=== PATIENT | female | born 1980 | race African-American/Black ===

== ENCOUNTER 2018-08-13 23:33 | Inpatient (IN) ==
[2018-08-14 00:47] LABS: BASO# 0.02 X1000 (0.0-0.2); BASO% 0.2 % (0.0-0.8); EOS# 0.16 X1000 (0.0-0.7); EOS% 1.5 % (0.0-10.0); HEMATOCRIT 29.3 % (37.0-47.0); HEMOGLOBIN 9.3 g/dL (12.0-16.0); IMM GRAN# 0.02 X1000 (0.0-0.04); IMM GRAN% 0.2 % (0.0-0.5); LYMPH# 4.73 X1000 (1.2-3.4); LYMPH% 42.9 % (20.5-51.1); MCH 25.3 PG (27-31); MCHC 31.7 g/dL (33-37); MCV 79.8 FL (81-99); MONO# 1.43 X1000 (0.11-0.59); MPV 9.7 FL (7.4-10.4); NEUT# 4.67 X1000 (1.4-6.5); NEUT% 42.2 % (42.2-75.2); PLT 298 X1000 (130-400); RBC 3.67 XMIL (4.2-5.4); RDW 14.3 % (11.5-14.5); WBC 11.03 X1000 (4.8-10.8)
[2018-08-14 00:58] LABS: AGAP 12; ALBUMIN 3.7 g/dL (3.5-5.0); ALKALINE PHOSPHATASE 382 U/L (32-104); BUN 7 mg/dL (8-22); CHLORIDE 103 mmol/L (98-107); COSMO 274; CREATININE 0.4 mg/dL (0.5-0.9); ESTIMATED GFR > 60; GLUCOSE 102 mg/dL (70-104); GOT 28 U/L (10-30); GPT 16 U/L (10-36); MAGNESIUM 1.4 mg/dL (1.5-2.7); SODIUM 138 mmol/L (136-145); TCO2 22 mmol/L (25-35); TOTAL PROTEIN 7.6 g/dL (6.3-8.3)
--- NOTE | 2018-08-14 01:36 | EKG Report ---
Test Performed on : 08/14/2018 00:39:29 AM Test Reason : palp Blood Pressure : / mmHG Vent. Rate : 095 BPM Atrial Rate : 095 BPM P-R Int : 138 ms QRS Dur : 084 ms QT Int : 386 ms P-R-T Axes : 069 055 049 degrees QTc Int : 485 ms Normal sinus rhythm. Possible Left atrial enlargement Prolonged QT Abnormal ECG No previous ECGs available Unconfirmed Result
[2018-08-14] MEDS ORDERED: SOLU-MEDROL IV ONE (04:28)
[2018-08-14] MEDS ORDERED: TAPAZOLE PO ONE (04:28)
--- NOTE | 2018-08-14 04:51 | PROVIDER DOCUMENTATION ---
This chart was entered by Tatum Camp Scribe, acting as scribe for Long Shea MD. HPI-General Adult - General Chief Complaint: General Adult Stated Complaint: NECK SWOLLEN Time Seen by Provider: 08/14/18 00:02 Source: patient Allergies/Adverse Reactions: Patient Allergies Allergy/AdvReac Type Severity Reaction Status Date / Time No Known Allergies Allergy Verified 08/13/18 23:58 - History of Present Illness -Gen Adult Nature of Presenting Problems: pt is a 38 yr old female presenting with complaint of neck pain/swelling, pt reports swelling to anterior neck x 1yr worsening and now involving posterior neck, pt also reports intermittent racing heart, chronic shortness of breath and cough, recent vision changes, feeling hot/flushed and recent 20+lb untententional weight loss. Location of Pain/Injury: reports: neck Pain Radiation: reports: no radiation Quality of Pain: reports: aching, tightness Severity: reports: moderate Onset/Duration: reports: gradual Timing: reports: changing over time, getting worse Context/Activities at Onset: reports: light activity Modifying Factors: improves with: nothing Associated Symptoms: reports: back/neck pain, cough (chronic), fatigue, malaise, shortness of breath (chronic). denies: fever/chills, headaches, nausea, trouble walking Similar Symptoms Previously?: No Recently seen or treated by another doctor?: No Review of Systems - Adult - REVIEW OF SYSTEMS - ADULT Constitutional: reports: fatique, night sweats, weight loss (20+lbs). denies: fever Eyes: reports: blurred vision Ears, Nose, Mouth & Throat: denies: ear pain, sinus problem, throat pain Cardiovascular: reports: irregular heart rate, palpitations. denies: chest pain, syncope Respiratory: reports: chronic cough, dyspnea on exertion, shortness of breath (chronic) Gastrointestinal: reports: no symptoms reported Genitourinary: reports: no symptoms reported Musculoskeletal: reports: muscle weakness, neck pain. denies: muscle aches Integumentary: reports: no symptoms reported Neurological: denies: dizziness/vertigo, headache/migraines, loss of balance, syncope Psychiatric: reports: no symptoms reported Endocrine: reports: excessive sweating Hematologic/Lymphatic: reports: swollen lymph nodes Allergic/Immunologic: reports: no symptoms reported All Other Systems: Reviewed and Negative Past History - Adult - PAST MEDICAL HISTORY-ADULT Review of Records: reports: Nursing Assessment Review, Medications Reviewed, Social history reviewed & non-contributory. Major Childhood Illnesses: reports: denies history Cardiovascular: reports: denies history Respiratory: reports: denies history Gastrointestinal: reports: denies history Obstetrical/Gynecological: reports: denies history Genitourinary: reports: denies history Musculoskeletal: reports: denies history Neurological: reports: denies history Endocrine/Immune: reports: denies history Other Conditions: reports: denies history - IMMUNIZATION STATUS Childhood Immunizations: See Nurse Assessment Flu Vaccine: See Nurse Assessment - FAMILY HISTORY Family History: reviewed, not pertinent - SOCIAL HISTORY Smoking: cigarettes Provider spent 3-5 mins advising pt. on dangers of tobacco.: Discussed manners to quit use, and f/u contacts for add'l counseling. Substance Use: alcohol, marijuana Alcohol Use Frequency: occasionally Living Situation: family Physical Exam-General - PHYSICAL EXAM-ADULT Initial Vital Signs Reviewed: Yes - CONSTITUTIONAL General Appearance: alert, no apparent distress, anxious - EYES Eyes: PERRL/EOMI, other (bilateral eye protusion) - HEAD, EARS, NOSE, MOUTH & THROAT HENMT: normocephalic/atraumatic, moist mucous membranes, TMs normal, pharynx normal - NECK Neck: full range of motion, supple, other (inflamation anterior neck) - RESPIRATORY Respiratory: chest non-tender, lungs clear, normal breath sounds, no pleuratic chest pain, no respiratory distress, no accessory muscle use - CARDIOVASCULAR Cardiovascular: normal peripheral pulses, no edema, no gallop, no JVD, no murmur , tachycardia - GASTROINTESTINAL (ABDOMEN) Abdominal Exam: normal bowel sounds, non tender, soft - LYMPHATIC Lymphatic: other (posterior cervical adnopathy) - MUSCULOSKELETAL Back Exam: normal inspection, no CVA tenderness, no vertebral tenderness Extremity: normal range of motion, non-tender, normal inspection Peripheral Pulses: radial (R): 2+, radial (L): 2+ DTR: bicep (R): 2+, bicep (L): 2+, tricep (R): 2+, tricep (L): 2+, knee (R): 2+, knee (L): 2+, ankle (R): 2+, ankle (L): 2+ - SKIN Integumentary: normal color, normal turgor, warm/dry - NEUROLOGIC Neurologic: other (CN II-XII intact) - PSYCHIATRIC Psych/Mental Status: anxious Progress - PLAN OF CARE/RESULTS Progress/Plan/Lab Results: Vital Signs - 8 hr 08/13/18 23:52 Temperature 98.3 F Pulse Rate 101 H Respiratory Rate 16 Blood Pressure 163/83 O2 Sat by Pulse Oximetry 100 Orders Category Date Time Status Cardiac Monitoring DIRECTED Care 08/14/18 00:27 Active ED: Urine Bedside ORDERED Care 08/14/18 00:36 Active Nursing- Obtain EKG ONCE Care 08/14/18 00:27 Active CHEST-2 VIEWS [RAD] Stat Exams 08/14/18 00:27 Ordered CBC WITH DIFF [HEME] Stat Lab 08/14/18 00:42 Ordered COMPREHENSIVE METABOLIC PANEL [CHEM] Stat Lab 08/14/18 00:42 Ordered FREE T3 [HH] Stat Lab 08/14/18 00:30 Received MAGNESIUM [CHEM] Stat Lab 08/14/18 00:42 Ordered T4 Stat Lab 08/14/18 00:30 Received TSH Stat Lab 08/14/18 00:42 Ordered EKG [EKG] Stat Ther 08/14/18 00:27 Ordered Result Diagrams: 08/14/18 00:20 08/14/18 00:20 - XRAY 1 XRAY Study: Chest Impression: Normal - CONSULTS/PCP/HOSPITALIST Notification #1 *Consult/PCP/Hospitalist*: Bruno Del Rosario Discussed: 23:50 Reason/Comments: no answer #2 Consult: Bruno Time Discussed: 02:47 Reason/Comments: no answer, repaged @ [phone] #3 Consult: Bruno Time Discussed: 04:25 Consult Disposition: Admit Departure - Departure Date of Disposition Decision: 08/13/18 Time of Disposition Decision: 23:50 DIAGNOSIS: Hyperthyroidism Disposition: ADMITTED INPATIENT 09 Certified Medical Emergency: Emergent Condition: Good Referrals and Follow-Ups: None,PCP [Primary Care Provider] - - Critical Care Note This patient required my direct & personal management of CC.: No Attestation - Physician/ JAMEL Attestation Patient care was provided by Advanced Practice Provider:: No The physician spent face to face time with patient:: Yes Advanced Practice Provider documentation review:: Supervising physician onsite and consulted in the evaluation and care of this patient. The physician did have a face to face encounter with the patient. This chart was documented by the indicated scribe, (Tatum Camp Scribe) and accurately reflects the services I performed and decisions made by me, Long Shea MD, as attested by the provider's signature.
[2018-08-14] MEDS ORDERED: TAPAZOLE PO SCH (05:00)
--- NOTE | 2018-08-14 07:17 | Diag Imaging Result Doc PS360 ---
EXAM: CHEST-2 VIEWS - 08/14/2018 HISTORY: palpit TECHNIQUE: Chest two views COMPARISON: None. FINDINGS: Heart size appears mildly enlarged. There are calcified granulomas and small calcified lymph nodes from old granulomatous disease on the left. The lungs otherwise appear essentially clear. There is mild thickening of fissures. There is no substantial pleural effusion or pneumothorax identified. IMPRESSION: Mild cardiomegaly. Mild thickening of fissures. No other evidence of acute disease. Electronically signed by Michael Galvez 08/14/2018 7:14 AM
[2018-08-14] MEDS: NS 1,000 ML IV SCH ×2 (08:29→16:48)
[2018-08-14] MEDS: PROTONIX IV SCH (08:29)
[2018-08-14] MEDS: TORADOL IV SCH ×2 (08:29→13:36)
--- NOTE | 2018-08-14 09:15 | Diag Imaging Result Doc PS360 ---
EXAM: US SOFT TISSUE HEAD/NECK - 08/14/2018 HISTORY: new hyperthyroid TECHNIQUE: Ultrasound thyroid COMPARISON: None. FINDINGS: The right lobe measures 7.1 x 3.5 x 4 cm in size. The left lobe measures 7.1 x 2.7 x 3.7 cm in size. The bilateral lobes demonstrate somewhat heterogeneous echotexture diffusely. There is no discrete focal lesion identified in either lobe. IMPRESSION: Diffusely enlarged thyroid, with diffusely heterogeneous echotexture. No discrete focal lesion. Electronically signed by Michael Galvez 08/14/2018 9:12 AM
[2018-08-14] MEDS ORDERED: MAGNESIUM SULFATE 2 GM/S.W.I. 2 GM/50 ML IVPB IV ONE (09:28)
--- NOTE | 2018-08-14 10:09 | HISTORY AND PHYSICAL ---
PRIMARY CARE PHYSICIAN: None. CHIEF COMPLAINT: Fatigue, intermittent heart racing, recent vision changes, and a 20 pound weight loss. She has also noticed over the last year a knot and swelling to the front of her anterior neck. HISTORY OF PRESENTING ILLNESS: This is a 38-year-old female who presents to [facility] ER with complaints of fatigue, intermittent heart racing, recent vision changes, and a 20 pound weight loss. States that she has noticed over the past year a swelling to her anterior neck, now with 3 knots in her posterior neck that have progressively worsened over the past year. She is noted also to have some exophthalmos. Her TSH level was 0.01 so she is being admitted for further evaluation and treatment. PAST MEDICAL HISTORY: Anxiety. PAST SURGICAL HISTORY: Cholecystectomy. FAMILY HISTORY: Reviewed and noncontributory. SOCIAL HISTORY: She currently lives with family. Smokes half a pack of cigarettes a day, and has smoked for approximately 14 years. Denied any alcohol use. States she smokes 2 joints of marijuana approximately 5 days a week. ALLERGIES: She has no known drug allergies. HOME MEDICATIONS: She does not take any medications on a routine basis. LABORATORY DATA: White blood cell count of 11.03, hemoglobin of 9.3, hematocrit 29.3, and platelets 298,000. Sodium 138, potassium 4, chloride 103, CO2 22, BUN of 7, creatinine 0.4, glucose 102, magnesium 1.4, and TSH of 0.01. Chest x-ray showed mild cardiomegaly, and mild thickening of fissures. No other evidence of acute disease. REVIEW OF SYSTEMS: She denied any fever or chills. She has had some blurred vision, fatigue, intermittent heart racing, chronic shortness of breath and a cough, and increased difficulty swallowing. She had a 20 pound weight loss over the past month, and noticed over the past year an area to the front of her neck swelling. Denied any abdominal pain, constipation, diarrhea, burning or hurting with urination. PHYSICAL EXAMINATION: VITAL SIGNS: On arrival, she had a temperature of 98.3 degrees, pulse 101, respirations 16, blood pressure 163/83, and saturating 100% on room air. GENERAL: This is a 38-year-old female who is sitting up in the bed and answers questions appropriately. HEENT: Normocephalic, atraumatic. Normal ears, nose, and throat examination. Oropharynx and nares are clear. Eyes: Pupils are noted to be protruding with exophthalmos, and equal lung expansion. Extraocular movements are intact. NECK: She has full range of motion. She does have inflammation to the anterior neck with an enlarged thyroid gland. LUNGS: Clear to auscultation bilaterally with equal lung expansion and chest wall movement. HEART: Regular rate and rhythm. No murmurs, rubs, or gallops. ABDOMEN: Soft, nontender, and nondistended. Bowel sounds are present x4 quadrants. MUSCULOSKELETAL: She has 5/5 strength x4 extremities. NEUROLOGICAL: The cranial nerves 2-12 appear grossly intact. ASSESSMENT: 1. Hyperthyroidism, new onset. 2. Hypomagnesemia. 3. Tobacco abuse. 4. Marijuana abuse. PLAN: She has been admitted to the medical unit at [place], placed on telemetry, and regular diet. We are doing an ultrasound of the soft tissue of head and neck this morning. We will check a free T3 and a T4, and a thyrotropin receptor A/B. She received her first dose of methimazole 10 mg p.o. x1 in the emergency room this morning. We will continue that q.8. She is on Solu-Medrol 60 mg IV q.6. We will wean as she improves. Toradol 30 mg IV q.6 routinely. Recheck a CBC and BMP in the morning. Magnesium sulfate 2 g IV x1. Recheck a magnesium level in the morning. Further orders after being seen by attending. Dictated by MERCEDEZ Barrientos for Nehemias Seay MD Addendum: Patient seen and examined by myself. Agree with MERCEDEZ note. It reflects my assessment and plan. Patient is admitted to hospital for hyperthyroidism. Will check T3 and T4 and start Tapazole and Solumedrol as well. Will do thyroid ultrasound and to check thyroid gland from outside will order CT of neck as well. cc: MERCEDEZ Barrientos MD [facility]
[2018-08-14] MEDS: SOLU-MEDROL IV SCH ×2 (10:51→16:45)
[2018-08-14] MEDS: TAPAZOLE PO SCH ×2 (13:36→20:52)
--- NOTE | 2018-08-14 15:00 | Diag Imaging Result Doc PS360 ---
EXAM: CT NECK W/CONTRAST - 08/14/2018 HISTORY: goiter TECHNIQUE: CT neck with intravenous contrast COMPARISON: 08/14/2018 ultrasound thyroid FINDINGS: The thyroid is diffusely substantial enlarged. The upper pole the right thyroid lobe is somewhat larger than on the left. There is no discrete focal thyroid lesion identified. The trachea does not appear substantially compressed by the enlarged thyroid, although the transverse dimension of the trachea may be slightly narrowed at the lower pole thyroid region. There is possibly some compression of the esophagus between the posterior portions of enlarged thyroid lobes and anterior margin of the cervical spine. There are anterior cervical spine osteophytes noted. There are mildly prominent bilateral submandibular and cervical lymph nodes. There are apparent mildly prominent lymph nodes at the supraclavicular regions and upper mediastinum. IMPRESSION: Diffusely enlarged thyroid. No discrete focal thyroid lesion identified. Mildly prominent bilateral submandibular and cervical lymph nodes. Mildly prominent supraclavicular and upper mediastinal lymph nodes. This exam was performed using automated exposure control, adjustment of mA or kV according to patient size, and/or use of iterative reconstruction technique. Electronically signed by Michael Galvez 08/14/2018 2:58 PM
[2018-08-15] MEDS: PROTONIX IV SCH ×3 (00:24→20:27)
[2018-08-15] MEDS: SOLU-MEDROL IV SCH ×5 (00:24→22:44)
[2018-08-15] MEDS: TORADOL IV SCH ×5 (00:24→20:26)
[2018-08-15] MEDS: NS 1,000 ML IV SCH ×3 (02:22→16:42)
[2018-08-15] MEDS: TAPAZOLE PO SCH ×3 (04:50→20:26)
[2018-08-15 08:19] LABS: HEMATOCRIT 30.9 % (37.0-47.0); HEMOGLOBIN 9.7 g/dL (12.0-16.0); MCH 25.2 PG (27-31); MCHC 31.4 g/dL (33-37); MCV 80.3 FL (81-99); MPV 9.7 FL (7.4-10.4); RBC 3.85 XMIL (4.2-5.4); WBC 13.97 X1000 (4.8-10.8)
[2018-08-15] MEDS: SODIUM CHLORIDE 0.9% INJ SCH ×2 (08:40→20:27)
[2018-08-15 09:01] LABS: AGAP 10; BUN 11 mg/dL (8-22); CALCIUM 9.2 mg/dL (8.8-10.2); CHLORIDE 109 mmol/L (98-107); COSMO 281; CREATININE 0.3 mg/dL (0.5-0.9); ESTIMATED GFR > 60; GLUCOSE 140 mg/dL (70-104); MAGNESIUM 1.7 mg/dL (1.5-2.7); POTASSIUM 4.4 mmol/L (3.5-5.1); SODIUM 140 mmol/L (136-145); TCO2 21 mmol/L (25-35)
[2018-08-15] MEDS: NORVASC PO SCH ×2 (11:22→20:26)
--- NOTE | 2018-08-15 12:06 | PROGRESS NOTE ---
DATE: 08/15/2018 SUBJECTIVE: Patient reports feeling fine with less palpitations noted. No other complaints noted. OBJECTIVE: Vital Signs: Temperature 98.3 degrees, heart rate 102, respiratory rate 18, blood pressure 165/69, and O2 saturation 91% on room air. General: This is a 38-year-old female lying in bed in no acute distress. HEENT: Head is normocephalic, atraumatic. Exophthalmos noted in both eyes. Neck: No JVD noted. No carotid bruits. No lymphadenopathy. No thyromegaly. Cardiovascular: S1, S2 heard. No murmurs, gallops, or rubs. Regular rate and rhythm. Respiratory: Clear bilaterally to auscultation. No work of breathing or using accessory muscles. Abdomen: Soft. Nontender to palpation. Bowel sounds present. No organomegaly. Extremities: No clubbing, cyanosis, or edema. Peripheral pulses present in both legs. Neurological: Patient is alert and oriented x3. Moves all 4 extremities. LABORATORY DATA: White cell count 13.97, hemoglobin 9.7, hematocrit 30.9, and platelets 270,000 with a normal BMP. ASSESSMENT AND PLAN: 1. Hypothyroidism most likely Graves disease. The patient has been admitted to the hospital for hyperthyroidism. TSH has been suppressed and elevated T3 and T4. At this point, we are going to continue with Tapazole which is supposed to stop the production of thyroid hormones and also IV steroids help prevent peripherally conversion from T4 to T3. We will continue also with IV fluids. The patient's blood pressure has been high because of the hyperthyroidism. We will start amlodipine 5 mg p.o. b.i.d. We will go from there. The patient advised to stop smoking, and to stop abusing marijuana. Patient acknowledged understanding. The CT of the neck that we have done basically showed the large thyroid gland, but there are no nodules noted. There is mild prominence supraclavicular and upper mediastinal lymph nodes, but no other issues noted. At this point, we will continue with current management. cc: Nehemias Seay MD [facility]
[2018-08-15] MEDS: PRINIVIL PO SCH (22:44)
[2018-08-16] MEDS: TORADOL IV SCH ×4 (01:12→20:12)
[2018-08-16] MEDS: SOLU-MEDROL IV SCH ×2 (04:20→15:18)
[2018-08-16] MEDS: TAPAZOLE PO SCH ×3 (04:20→20:12)
[2018-08-16] MEDS: NS 1,000 ML IV SCH (04:52)
[2018-08-16] MEDS ORDERED: SODIUM CHLORIDE 0.9% 10 ML ONE ×2 (07:01→16:48)
[2018-08-16 07:22] LABS: HEMATOCRIT 30.4 % (37.0-47.0); HEMOGLOBIN 9.7 g/dL (12.0-16.0); MCH 25.4 PG (27-31); MCHC 31.9 g/dL (33-37); MCV 79.6 FL (81-99); MPV 10.2 FL (7.4-10.4); RBC 3.82 XMIL (4.2-5.4); WBC 13.26 X1000 (4.8-10.8)
[2018-08-16 08:35] LABS: AGAP 9; BUN 12 mg/dL (8-22); CALCIUM 8.9 mg/dL (8.8-10.2); CHLORIDE 108 mmol/L (98-107); COSMO 279; CREATININE 0.3 mg/dL (0.5-0.9); ESTIMATED GFR > 60; GLUCOSE 154 mg/dL (70-104); POTASSIUM 4.5 mmol/L (3.5-5.1); SODIUM 138 mmol/L (136-145); TCO2 21 mmol/L (25-35)
[2018-08-16] MEDS: PRINIVIL PO SCH ×2 (09:35→20:12)
[2018-08-16] MEDS: NORVASC PO SCH ×2 (09:35→20:12)
[2018-08-16] MEDS: PROTONIX IV SCH ×2 (09:35→20:12)
--- NOTE | 2018-08-16 13:21 | PROGRESS NOTE ---
DATE: 08/16/2018 SUBJECTIVE: The patient does not report any new complaints. OBJECTIVE: Vital Signs: Temperature 97.4 degrees, heart rate 96, respiratory rate 18, blood pressure 159/80, O2 saturation 94% on room air. Last night, blood pressure was 190/102. General: This is a 38-year-old, female, lying in bed, in no acute distress. Cardiovascular: S1, S2 heard. Tachycardic. No murmurs, gallops or rubs noted. Respiratory: Clear bilaterally to auscultation. No work of breathing or using accessory muscles. Abdomen: Soft, nontender to palpation. Bowel sounds present. No organomegaly. Extremities: No clubbing, cyanosis, or edema. Peripheral pulses present in both legs. Neurological: Patient alert oriented x3. Moves 4 extremities. LABORATORY DATA: Reviewed. ASSESSMENT AND PLAN: Hyperparathyroidism, most likely Graves' disease. At this point, clinically this patient is feeling much better, stable, less palpitations. The blood pressure unfortunately is going high so I am going to start treating high blood pressure. Highest blood pressure she had was 190, so we are going to add lisinopril 10 twice daily to her current treatment. We have stopped IV fluids. We will continue with Tapazole and intravenous steroids. We will continue with the same management. cc: Nehemias Seay MD [facility]
[2018-08-16] MEDS: SODIUM CHLORIDE 0.9% INJ SCH (20:12)
[2018-08-17] MEDS: TAPAZOLE PO SCH ×3 (04:33→20:45)
[2018-08-17] MEDS: NS 1,000 ML IV SCH (04:33)
[2018-08-17] MEDS: TORADOL IV SCH (04:33)
[2018-08-17] MEDS: SOLU-MEDROL IV SCH (04:33)
[2018-08-17 08:01] LABS: HEMATOCRIT 29.4 % (37.0-47.0); HEMOGLOBIN 9.5 g/dL (12.0-16.0); MCH 25.5 PG (27-31); MCHC 32.3 g/dL (33-37); MPV 10.1 FL (7.4-10.4); RBC 3.72 XMIL (4.2-5.4); RDW 13.9 % (11.5-14.5); WBC 20.52 X1000 (4.8-10.8)
[2018-08-17 08:07] LABS: AGAP 9; BUN 13 mg/dL (8-22); CALCIUM 8.3 mg/dL (8.8-10.2); CHLORIDE 108 mmol/L (98-107); COSMO 278; CREATININE 0.3 mg/dL (0.5-0.9); ESTIMATED GFR > 60; GLUCOSE 103 mg/dL (70-104); POTASSIUM 4.1 mmol/L (3.5-5.1); SODIUM 139 mmol/L (136-145); TCO2 23 mmol/L (25-35)
--- NOTE | 2018-08-17 10:53 | PROGRESS NOTE ---
DATE: 08/17/2018 SUBJECTIVE: The patient reports palpitations sporadically. No other complaints noted. OBJECTIVE: Vital Signs: Temperature 98.2 degrees, heart rate 85, respiratory rate 18, blood pressure 148/74, O2 saturation 100% on room. General: This is a 38-year-old female, lying in bed in no acute distress. HEENT: Exophthalmus noted in both eyes. Neck: No JVD noted. No carotid bruits. No lymphadenopathy. Cardiovascular: S1, S2 heard. Tachycardic. No murmurs, gallops, or rubs noted. Respiratory: Clear bilaterally to auscultation. No work of breathing or using accessory muscles. Abdomen: Soft, nontender to palpation. Bowel sounds present. No organomegaly. Extremities: No clubbing, cyanosis, or edema. Peripheral pulses present in both legs. Neurological: The patient is alert and oriented x3. Moves all 4 extremities. LABORATORY DATA: Reviewed. ASSESSMENT AND PLAN: 1. Hyperthyroidism secondary to Graves' disease. The patient was basically admitted to the hospital for tachycardia, bilateral exophthalmus, a mass in the anterior neck, and we found out that this patient has hyperthyroidism. We have ordered TSH receptor antibody, which is positive. Normal limit is 0 to 1.75, and in her case is 38. This is 97 sensitive and 99 specific for detection of Graves' disease. Since admission, she is receiving Tapazole and also was receiving intravenous steroids. Tapazole is supposed to block the production of thyroid hormones, and intravenous steroids were supposed to block peripheral conversion of T4 to T3. Today, I have decided to stop intravenous steroids because of the elevation in white cell count to 20,000. The patient also has hypertension, most likely related to this hyperthyroidism, so lisinopril 10 mg by mouth twice daily, plus amlodipine 5 mg by mouth twice daily has been provided. At this point, my plan is to keep this patient in the hospital until blood pressure and heart rate are better controlled, and also she is not complaining of any palpitations. Then, she can be discharged with referral to [facility] for ablation of thyroid gland. cc: Nehemias Seay MD [facility]
[2018-08-17] MEDS: PRINIVIL PO SCH ×2 (11:10→20:45)
[2018-08-17] MEDS: NORVASC PO SCH ×2 (11:10→20:45)
[2018-08-17] MEDS: PROTONIX IV SCH ×2 (11:10→20:45)
[2018-08-17] MEDS: SODIUM CHLORIDE 0.9% INJ SCH (20:45)
[2018-08-18] MEDS: TAPAZOLE PO SCH ×2 (05:00→13:23)
[2018-08-18] MEDS: PRINIVIL PO SCH (08:21)
[2018-08-18] MEDS: PROTONIX IV SCH (08:21)
[2018-08-18] MEDS: NORVASC PO SCH (08:21)
[2018-08-18] MEDS: SODIUM CHLORIDE 0.9% INJ SCH (08:21)
[2018-08-18 14:51] VITALS: BP 158/57
--- NOTE | 2018-08-18 18:51 | DISCHARGE SUMMARY ---
ADMISSION DATE: 08/14/2018 DISCHARGE DATE: 08/18/2018 ADMISSION DIAGNOSES: 1. New-onset hyperthyroidism. 2. Hypomagnesemia. 3. Tobacco abuse. 4. Marijuana abuse. DISCHARGE DIAGNOSES: 1. New-onset hyperthyroidism, Graves' disease. 2. Hypomagnesemia. 3. Tobacco abuse. 4. Marijuana abuse. CONSULTATIONS: None. DIAGNOSTIC PROCEDURES AND FINDINGS: Chest x-ray on 08/14/2018: Mild cardiomegaly with mild thickening of the fissures; no evidence of acute disease. EKG on 08/14/2018: Sinus rhythm; no acute ST or T abnormalities. Head and neck ultrasound on 08/14/2018: Diffusely enlarged thyroid with wide diffusely heterogeneous echotexture. No discreet focal lesion. CT on 08/14/2018: Diffusely enlarged thyroid, mildly prominent lymph nodes. HOSPITAL COURSE: Ms. Willams is a 38-year-old, -[place] female who came to [facility] with fatigue, intermittent palpitations, a 20-pound weight loss and swelling to the anterior neck. She has also noticed eye bulging. She came to the ER. TSH was 0.01 and her T4 ended up being greater than 24, giving her the diagnosis of Graves' disease/new-onset hyperthyroidism. She was started on methimazole, Toradol, Norvasc and methylprednisolone. We did do ultrasound and CT of her head and neck, which did reveal diffusely enlarged thyroid. She did start having some worsening hypertension during her admission and this was treated appropriately. Overall, her symptoms improved greatly with medications. We have made her an appointment with Dr. Davis on Saturday. She will need followup with Endocrinology. Overall, she is now stable for discharge home. DISCHARGE MEDICATIONS: 1. Norvasc 5 mg b.i.d. 2. Lisinopril 10 mg b.i.d. 3. Protonix 40 mg daily. 4. Tapazole 10 mg p.o. q.8h. DISCHARGE DIET: Heart Healthy diet. DISCHARGE ACTIVITY: Resume activity as tolerated. DISPOSITION AND OTHER DISCHARGE INSTRUCTIONS: The patient is discharged home to self-care. She is to follow up with Dr. Davis on Saturday and with Endocrinology as directed by Dr. Davis. She is to take all of her medicines as directed and return to the ER or call 911 for worsening complaints or concerns. All questions were answered. Discharge time: greater than 35 minutes. Dictated by MERCEDEZ Portillo for Isael Jacobsen MD cc: MERCEDEZ Portillo MD Nidhi Jindal, MD
[2018-08-18] MEDS ORDERED: PROTONIX PO SCH (21:00)
--- NOTE | 2018-08-18 23:02 | PROGRESS NOTE ---
DATE: 08/18/2018 NO DICTATION cc: Isael Jacobsen MD
[2018-08-19 00:02] LABS: HEMATOCRIT 29.6 % (37.0-47.0); HEMOGLOBIN 9.3 g/dL (12.0-16.0); MCH 25.4 PG (27-31); MCHC 31.4 g/dL (33-37); MCV 80.9 FL (81-99); MPV 10.8 FL (7.4-10.4); RBC 3.66 XMIL (4.2-5.4); RDW 14.1 % (11.5-14.5); WBC 19.72 X1000 (4.8-10.8)
--- NOTE | 2018-08-19 07:00 | DISCHARGE SUMMARY ---
ADMISSION DATE: 08/14/2018 DISCHARGE DATE: 08/18/2018 DISPOSITION: 1. Hypothyroidism secondary to Graves disease. 2. Leukocytosis. 3. Hypertension. CONSULTATIONS: None. PROCEDURE: None. BRIEF HOSPITAL COURSE: Patient is a 38-year-old female who presented to the hospital subsequently diagnosed with Graves disease. Her blood pressure was treated. Thankfully, she had an uneventful hospital course. On discharge she is awake, alert. DISCHARGE DISPOSITION: Patient is awake, alert. She is still having some palpitations, although much better, and says her blurry vision is almost resolved. PLAN: We will continue patient on Tapazole. She has an appointment already with Endocrinology in 3 days. Continue to follow her blood pressures. Further orders as needed. cc: Isael Jacobsen MD
== END 2018-08-18 15:34 | disposition home or self-care (01) | DRG 645 ==
LOC: P.ED 23:33 → SUATTDRO 08-14 05:17 → P.MEDSURG 08-14 05:17
PROVIDERS: ATTEND Family Medicine
CPT/HCPCS: 70491; 71020; 71046; 76536; 80048; 80053; 81025; 83519; 83520; 83735; 84436; 84443; 84481; 85025; 85027; 93005; 96374; 99285; A9270; C9113; J1885; J2920; J2930; J3475; J7030; Q9967; S0164